=== PATIENT | female | born 1955 | race Caucasian/White ===

== ENCOUNTER 2018-04-08 13:44 | Observation (INO) ==
[2018-04-08] MEDS ORDERED: Heparin 1,000 UNITS/500 mL 500 ML ONE (13:47)
[2018-04-08] MEDS ORDERED: ISOVUE-370 200 ML INFUS..BTL IV ONE (13:47)
[2018-04-08] MEDS ORDERED: *HR* Heparin 10,000 UNIT/10 ML VIAL ONE (13:47)
[2018-04-08] MEDS ORDERED: 0.9 % Sodium Chloride 1,000 ML ONE ×2 (13:47→14:29)
[2018-04-08] MEDS ORDERED: *HR* Midazolam HCl 2 MG/2 ML VIAL ONE (14:31)
[2018-04-08] MEDS ORDERED: Nitroglycerin 1,000 MCG/10 ML VIAL IV ONE (14:32)
[2018-04-08] MEDS ORDERED: *HR* Atropine Sulfate 1 MG/10 ML SYRINGE ONE (14:33)
[2018-04-08] MEDS ORDERED: Nitroglycerin 0.4 MG TAB.SUBL SL PRN (15:31)
--- NOTE | 2018-04-08 16:40 | Invasive Diagnostic Lab Proc ---
Name: Sindy Arroyo Date of Study: 04/08/2018 Date: 1955 Ht: 66.9in Medical Record#: [id number] Age: 62 Wt: 149.91lb Gender: Female BSA: 1.79 Order #: [id number] BMI: 23.53 Physicians Procedure Physician: Hakeem Finch DO Referring MD: Referring MD: Staff Name Position [facility] 02:27 PM John Sandoval RT (R) Scrub 02:27 PM Emelyn Szymanski RN Capsule Filling Machine Operator 02:28 PM Jaimee Rowe RN Capsule Filling Machine Operator 02:28 PM Gutierrez Hooks RN Nurse 02:28 PM Renate Love RN Nurse 02:33 PM Payton Cobian RT (R) 02:36 PM Indications Indication STEMI Procedures Performed Procedure L HRT ARTERY/VENTRICLE ANGIO Pre-Procedure Checklist Informed consent is complete signed and on chart. H&P is on chart. ID band is on and ID verified with patient. Patient NPO for procedure The procedure was described for the patient and questions were answered. ECG is on chart. Rhythm: NSR Plan of Care Patient will tolerate the procedure without complications. Adequate level of comfort will be maintained. Hemodynamics will remain stable Patient will recover from procedure without complications. Respiratory function will be maintained. Cardiac rhythm will remain stable. Patient temperature will be maintained. Patient and/or family have verbalized understanding of the procedure. Patient Education Chief Complaint/Reason for Test: Cardiac Cath Developmental Category: Adult (18-64 years) Developmentally Appropriate for Age: Yes Learning Barriers: None Education Needs: Procedure Education Method: Verbal Information Taught: Cardiac Cath Educational Evaluation: Able to repeat information Intravenous Access Time IV Size Location DC'd Fluid/Drip Rate Units RN 18g 1 11/20" Peripheral-Lock On Arrival Rt Antecubital 0.9NaCl 50 ml/hr Jaimee Rowe RN 18g 1 11/20" Patent On Arrival Lt Arm 0.9NaCl 25 ml/hr Jaimee Rowe RN Allergies No Known Allergies Vital Signs Time BP (mmHg) HR (bpm) O2 Sat. RR (bpm) LOC 02:28 PM / % 5 = Fully awake and oriented or at pre-proc level 02:31 PM / % 5 = Fully awake and oriented or at pre-proc level 02:31 PM / % 5 = Fully awake and oriented or at pre-proc level 02:33 PM 159 / 79 78 100 % 02:38 PM 145 / 81 68 100 % 02:43 PM 147 / 87 66 100 % 03:00 PM 146 / 75 69 98 % 18 5 = Fully awake and oriented or at pre-proc level 03:15 PM 138 / 77 67 100 % 18 5 = Fully awake and oriented or at pre-proc level 03:30 PM 143 / 74 74 98 % 18 5 = Fully awake and oriented or at pre-proc level 03:45 PM 138 / 87 70 98 % 18 5 = Fully awake and oriented or at pre-proc level 04:00 PM 139 / 86 69 99 % 18 5 = Fully awake and oriented or at pre-proc level 04:15 PM 147 / 94 63 99 % 18 5 = Fully awake and oriented or at pre-proc level Procedural Medications Time Medication Dose Units Method Given By 02:27 PM 0.9NaCl 50 ml/hr Intravenous 02:27 PM Oxygen 2 L/min nasal cannula Emelyn Szymanski RN 02:34 PM Versed 2 mg Intravenous Emelyn Szymanski RN 02:36 PM Lidocaine 2% 10 ml Subcutaneous Hakeem Finch DO ASA Classification: Emergent Procedure: ASA score is assumed Soraya Score Preprocedure Postprocedure Activity 2- Moves 4 extremities sustained head lift Activity 2- Moves 4 extremities sustained head lift Circulation 2- SBP +/= 20 points of pre-anesthetic level Circulation 2- SBP +/= 20 points of pre-anesthetic level Consciousness 2- Awake and alert oriented x 3 Consciousness 2- Awake and alert oriented x 3 O2 Saturation 2- Able to maintain O2 satruation of 92% on room air O2 Saturation 2- Able to maintain O2 satruation of 92% on room air Respiratory 2- Able to deep breathe and cough well Respiratory 2- Able to deep breathe and cough well Total Score 10 Total Score 10 Contrast Agent: Isovue Diagnostic Contrast: 60 ml Total Contrast: 60 ml Fluoro Dose: 170 mGy Activated Clotting Time Time Seconds to Clot 02:42 PM 219 03:40 PM 149 Procedure Log Time Note Enter By 02:27 PM Pt arrived to chemistry laboratory technician 2 at 14:27 tsites 02:27 PM Patient arrived at 14:27 with 0.9NaCl Intravenous drip @ 50 ml/hr tsites 02:27 PM Lala Melchor RN Position: Monitor Time in: 14:27 tsites 02: PM John Sandoval RT (R) Position: Scrub Time in: : tsites 02: PM Patient charges- Angio tray pack, Navilyst 3mm J, Pulse Oximetry and ACIST tubing and transducer tsites : PM Hair removed from procedure site in procedure lab using clippers. Bilateral groin prepped with Chloraprep by Jaimee Rowe RN, then patient was draped. Skin intact. tsites : PM Physician arrived 14: tsites : PM Meet and greet completed tsites : PM Sign in performed according to hospital policy. tsites : PM Procedure start : tsites : PM Time: : Oxygen on at 2 L/min per nasal cannula by Emelyn Szymanski RN ites : PM Emelyn Szymanski RN Position: Capsule Filling Machine Operator Time in: : tsites 02: PM Jaimee Rowe RN Position: Capsule Filling Machine Operator Time in: : tsites : PM Gutierrez Hooks RN Position: Nurse Time in: ts PM Time: 14: Patient comfortable and pain free: Yes tsites : PM Time: 14:LOC: 5 = Fully awake and oriented or at pre-proc level tsites 02: PM CathStat 02: PM Clinical Presentation: STEMI or equivalent tsites 02:31 PM Vitals capture started with the following parameters, Patient=Adult, Interval=5 min, Initial Pvhkpoue=254 mmHg, Deflation Rate=5 mmHg, Cuff placed on Right Arm 02: PM D-fib pads applied ts: PM Time: 14:31 Patient comfortable and pain free: Yes tsoummers 02: PM Time: 14:31LOC: 5 = Fully awake and oriented or at pre-proc level tsoummers 02:32 PM Vitals capture started with the following parameters, Patient=Adult, Interval=5 min, Initial Foxpssle=198 mmHg, Deflation Rate=5 mmHg, Cuff placed on Right Arm 02:33 PM HR=78 bpm, VWNV=317/79 mmhg, FlY4=127.0 %, Comment=NSR 02:33 PM Renate Love RN Position: Nurse Time in: [facility] 02:34 PM Recorded ECG: HR=68 Condition=Condition 1 02:34 PM Time: 14:34 Versed 2 mg Intravenous Given by Emelyn Szymanski RN oumm 02:35 PM Pressure channel 2 zeroed. 02:35 PM Time out performed according to hospital policy mm 02:36 PM Aranza Payton RT (R) Position: Time in: 14:36 tsoumm 02:36 PM Time: 14:36 10 ml Lidocaine 2% to right groin Subcutaneous Given by Hakeem Finch DO mm 02:38 PM Micro-Introducer Kit utilized for sheath placement mm 02:38 PM Access obtained by percutaneous puncture. 6Fr 10cm Terumo [place] sheath placed in right Femoral artery. [id number] oumm 02:38 PM HR=68 bpm, KYPR=721/81 mmhg, LpO9=058.0 %, Comment=NSR 02:38 PM 0.035 145cm Navilyst 3mmJ wire [id number] oumm 02:40 PM 6Fr FL 4 catheter inserted over the wire [facility] mm 02:40 PM wire removed mm 02:40 PM LCA angiography performed in multiple views. tsoumm 02:40 PM Recorded Pressure: Ao, HR=63, Condition=Condition 1 (Aorta) Ao 138/48/86 02:41 PM Inflation device was opened. tsoumm 02:41 PM Catheter removed mm 02:42 PM 6Fr JR 4 [place] Bright-Tip guide catheter was used to cannulate the PCI vessel successfully. reused? No oummers 02:42 PM At 14:42 the ACT was 219 seconds. tsmm 02:42 PM Catheter selectively placed in left ventricle tsoummers 02:42 PM Recorded Pressure: LV, HR=72, Condition=Condition 1 (Left Ventricle) LV 153/0/9 02:42 PM Bolus angiogram of left Ventricle complete: hand injection oumm 02:43 PM Recorded Pressure: LV, Ao, HR=73, Condition=Condition 1 (Left Ventricle) LV 148/0/10, (Aorta) Ao 150/69/105 02:43 PM RCA angiography performed in multiple views. tsoumm 02:43 PM HR=66 bpm, OFCC=483/87 mmhg, JfB0=674.0 %, Comment=NSR 02:43 PM Recorded Pressure: Ao, HR=70, Condition=Condition 1 (Aorta) Ao 126/20/61 02:44 PM Bolus angiogram of right Femoral complete: hand injection tsoumm 02:44 PM Guide catheter removed intact. tsoumm 02:45 PM Procedure completed at 14:45 tsoummers 02:46 PM Did you address JOSE flow and Dominance? Yes tsoummers 02:46 PM Time: 14:31LOC: 5 = Fully awake and oriented or at pre-proc level tsoumm 02:46 PM Time: 14:31 Patient comfortable and pain free: No tsoummers 02:47 PM Sign out completed: Radiation Dose 170.42 mGy Fluoro Time: 1.3 Isovue 370 - 200ml contrast 60 ml given by Hakeem Finch DO. Complications: NoneCardiac Rehab Consult needed: NoConfirmed administered medications: Yes tsoummers 02:47 PM Isovue 370 - 200ml,1 Bottle(s) used. tsoumm 02:47 PM Sheath left in place to be pulled on floor/holding area tsoummers 02:47 PM Estimated Blood Loss: minimal tsoummers 02:47 PM Post ECG NSR tsoummers 02:47 PM Post Blood Pressure 147/87 tsoummers 02:47 PM Information taught Cardiac Cath tsoummers 02:47 PM Education needs Procedure, Plan of Care, and Responsibilities of Patient in Care tsoummers 02:47 PM Learning barriers :None tsoummers 02:47 PM Education Methods Verbal tsoummers 02:47 PM Education evaluation Able to repeat information tsoumm 02:47 PM Site status No bleeding/hematoma - Rt Groin as reported by John Sandoval RT (R) at 14:47 tsoummers 02:47 PM Opsite applied tsoummers 02:48 PM 90mg brilinta given [employer] per Sukhi ED nurse tsoummers 02:48 PM Delay to floor Bed availability tsoummers 02:48 PM No family present at this time. Pt refuses to allow family to be contacted. tsoummers 02:48 PM Vitals capture stopped. 02:48 PM Complications: None tsoummers 02:48 PM Fluoro Time: 1.3 tsoummers 02:48 PM Isovue 370 - 200ml contrast [address] Finch. tsoummers 02:49 PM Radiation Dose 170.42 mGy tsoummers 02:50 PM Lesion found in Proximal LAD. Pre Stenosis: 50 Pre JOSE Flow: tsoummers 02:50 PM Lesion found in Mid LAD. Pre Stenosis: 40 Pre JOSE Flow: tsoummers 02:50 PM Proximal Left Anterior Descending Coronary Artery with 50% stenosis. If graft is supplying this territory, 0 % stenosis. tsoummers 02:50 PM Mid/Distal Left Anterior Descending Coronary Artery and diagonal branches with 40% stenosis. If graft is supplying this area, 0 % stenosis tsoummers 02:51 PM Coronary Dominance: right tsoummers 02:52 PM Bed management contacted. No 2N beds available at this time. Pt will be placed in the holding room until able to pull sheath. [facility] PM Per Sonya with bed menagement, pt will be taken to [facility] following sheath pull. tsoummers 02:54 PM Patient out of room: 14:54 tsoummers 03:[address] Finch in to see patient and speak with her and family regarding test results. kwitte 03:57 PM Right femoral artery sheath pulled per this RN. Manual pressure being held with Vpad at present. kwitte 04:15 PM Hemostasis obtained to right femoral artery. Dressing applied with opsite. Patient educated on post sheath pull instructions. Patient verbalized understanding. kwitte 04:31 PM report called to 3b nurse. [facility] at this time scoates 04:33 PM Patient out of room: 16:33 scoates Complications Complication None Hemodynamics Pressures Site Systolic/A Wave Diastolic/V Wave Mean AO 138 48 86 LV 153 0 9 LV 148 0 10 AO 150 69 105 AO 126 20 61 Post Procedure Information Blood Pressure: 147/87 mmHg Rhythm: NSR Post procedural instructions were given Site Checks Time Location Status Staff Sheath In? Note 02:47 PM Rt Groin No bleeding/hematoma John Sandoval RT (R) 03:00 PM Rt Groin No bleeding/ No Hematoma Aureliano Espinoza RN Yes 03:15 PM Rt Groin No bleeding/ No Hematoma Aureliano Espinoza RN Yes 03:30 PM Rt Groin No bleeding/ No Hematoma Aureliano Espinoza RN Yes 03:45 PM Rt Groin No bleeding/ No Hematoma Aureliano Espinoza RN Yes 04:00 PM Rt Groin No bleeding/ No Hematoma Aureliano Espinoza RN 04:15 PM Rt Groin No bleeding/ No Hematoma Aureliano Espinoza RN Pulses Time Site Pre-Procedure Post-Procedure Note 04/08/2018 3:00:00 PM Bilateral DP & PT 2+ 04/08/2018 3:15:00 PM Bilateral DP & PT 2+ Updated by Renate Mckeon RN on 04/08/2018 4:33:23 PM electronically signed on 04/08/2018 4:34:05 PM with status of Final
[2018-04-08] MEDS: Diltiazem CD (24hr) 120 MG CAPSULE PO SCH (18:52)
[2018-04-09 05:13] LABS: Basophils % 0.3 %; Eosinophils # 0.1 K/mcL (0.0-0.6); Eosinophils % 1.2 %; Hematocrit 42.1 % (35.3-44.9); Hemoglobin 14.7 g/dL (11.5-15.4); Immature Granulocytes % 0.3 % (0-4); Lymphocytes % 33.1 %; Mean Corpuscular HGB Conc 34.9 g/dL (31.6-35.5); Mean Corpuscular Hemoglobin 32.3 pg (28.0-33.3); Mean Corpuscular Volume 92.5 fL (83.0-100.0); Mean Platelet Volume 10.8 fL (9.4-12.4); Monocytes # 0.7 K/mcL (0.0-1.3); Monocytes % 7.9 %; Neutrophils # 5.2 K/mcL (1.6-8.9); Platelet Count 193 K/mcL (140-400); Red Blood Count 4.55 M/mcL (3.82-4.97); Red Cell Distribution Width 11.9 % (11.5-14.5); Segmented Neutrophils % 57.2 %
[2018-04-09] MEDS: Aspirin 81 MG TAB.CHEW PO SCH (09:06)
[2018-04-09] MEDS: Diltiazem CD (24hr) 120 MG CAPSULE PO SCH (09:06)
--- NOTE | 2018-04-09 11:54 | Cardiology Progress Note ---
Date of Encounter: 04/09/18 Time of Encounter: 11:50 Assessment and Plan (1) Prinzmetal angina Current Visit: Yes Status: Acute Presents with Chest pain with exercise and found to have ST elevation in the inferior leads. Troponin 4.57. Taken emergently to cardiac catheterization lab. No intervention. There was non- obstructive CAD. Repeat EKG showed resolution of ST elevation. Prinzmetal angina suspected. Cardizem and imdur started. Continue plavix for at least one month for IN. Denies recurrent pain this morning. Recommend ambulating in hallway today. TTE pending. (2) CAD (coronary artery disease) Current Visit: Yes Status: Acute LHC showed 50% stenosis in the pLAD and 40% stenosis mLAD. Recommend asa, statin , and bb. Continue healthy heart diet and exercise. Qualifiers: Coronary Disease-Associated Artery/Lesion type: [place] artery [place] vs. transplanted heart: [place] heart Associated angina: without angina Qualified Code(s): I25.10 - Atherosclerotic heart disease of [place] coronary artery without angina pectoris (3) NSVT (nonsustained ventricular tachycardia) Current Visit: Yes Status: Acute 20 beat NSVT seen this morning at 0748 am. Likely from re-profusion. Coreg and cardizem added, avg HR 58 bpm. Will continue to monitor on telemetry. EF 55% on LV gram. TTE pending. Discussion w patient/family: The assessment and plan as outlined above was discussed with the patient and/or family members who expressed understanding and agreement. All questions were answered. Thank you for involving us in the care of your patient. Please call with any questions. Subjective Principal diagnosis: prinzmetal angina Interval history: No recurrent chest pain overnight. Objective Vital Signs, Last 4 Hours Temp Pulse Resp BP Pulse Ox 04/09/18 11:24 97.8 F 64 16 121/74 97 General: Conversant, No Apparent Distress HEENT: Atraumatic, Normocephaly, Mucus Membranes Moist Neck: No JVD, Normal carotid pulses Cardiac: Reg Rate and Rhythm, Normal S1 and S2, No Murmur Lungs: Normal Breath Sounds, No Wheeze, Rales, Rhonchi Neuro: Alert and responsive, No focal deficits noted Abdomen: Soft, Non-Tender Skin: No rashes noted on visualized skin Musculoskeletal: No Chest Wall Tenderness Extremities: No Clubbing, No Cyanosis, No Edema, Normal Pulses, Other (Right groin dressing removed. No hematoma. Ne redness or edema. ) Results 04/09/18 04:32 Lab Results 04/09/18 04/09/18 04:32 04:32 WBC 9.1 Hgb 14.7 Hct 42.1 Plt Count 193 Troponin I 4.57 H* - Imaging and Cardiology Echo: pending Cardiac cath: report reviewed - EKG Interpretation EKG results cardiology: personally reviewed - VTE Reasons for not Prescribing Prophylaxis: Not indicated-Anticoagulated or INR therapeutic Consult Discharge Plan - Plan Referrals: NONE,PCP [Primary Care Provider] - Hoda Mckeon DO [Family Provider] -
[2018-04-10] MEDS: Diltiazem CD (24hr) 120 MG CAPSULE PO SCH (09:42)
[2018-04-10] MEDS: Aspirin 81 MG TAB.CHEW PO SCH (09:42)
--- NOTE | 2018-04-10 10:00 | Discharge Summary ---
Orders not resulted at time of discharge: Pending orders 04/08/18 15:38 ECG 12 lead ECG [ECG] Routine ECG 12 lead ECG [ECG] Stat 04/08/18 18:14 EKG [ECG 12 lead ECG] [ECG] Stat 04/09/18 07:00 ECG 12 lead ECG [ECG] Routine 04/09/18 10:51 EKG [ECG 12 lead ECG] [ECG] Routine 04/10/18 09:55 Basic Metabolic Panel Stat Magnesium Stat Date of Encounter: 04/10/18 Time of Encounter: 09:56 - Discharge Diagnosis (1) Prinzmetal angina Priority: Primary Status: Acute (2) CAD (coronary artery disease) Priority: Primary Status: Acute Qualifiers: Coronary Disease-Associated Artery/Lesion type: [place] artery [place] vs. transplanted heart: [place] heart Associated angina: without angina Qualified Code(s): I25.10 - Atherosclerotic heart disease of [place] coronary artery without angina pectoris (3) NSVT (nonsustained ventricular tachycardia) Priority: Primary Status: Acute - Hospital Course Hospital course: Ms. Arroyo is a 62 year old female with PMH of HLD who presented with chest pain. Chest pain started while she was exercising. She was found to have ST elevation in the inferior leads on her EKG and was taken to the cardiac catheterization lab emergently. LHC revealed 50% stenosis in the pLAD and 40% stenosis in the mLAD. No intervention needed. Her chest pain lasted a few hours and resolved after the addition of a CCB. ST elevation also resolved. She is diagnosed with prinzmetal angina. There was no complication from her procedure. Denies recurrent chest pain with ambulating in the hallway. The morning after her procedure she developed 20 beat run NSVT. She was asymptomatic. CCB and BB was added. NTG SL given and use, indication, adverse effects reviewed. Recommended to continue DAPT with asa and plavix for one month post IL. No recurrent NSVT seen in last 24 hours. TTE shows preserved EF and no significant valvular disease. She is now ready for discharge home. Plan of care reviewed with Dr. Parker. - Time Spent with Patient Total time spent providing and/or coordinating discharge services: - Discharge Medications Prescriptions: Nitroglycerin 0.4 mg SL Q5MIN PRN #25 tab.subl PRN Reason: Chest Pain Aspirin 81 mg PO DAILY #30 tab.chew Carvedilol [Coreg] 3.125 mg PO BIDWM #60 tablet Clopidogrel [Plavix] 75 mg PO DAILY #30 tablet Diltiazem CD (24hr) [Cardizem CD] 120 mg PO DAILY #30 cap.er.24h Rosuvastatin [Crestor] 20 mg PO HS #30 tablet Home Medications: Aspirin 81 mg PO DAILY #30 tab.chew 04/10/18 [Rx] Carvedilol [Coreg] 3.125 mg PO BIDWM #60 tablet 04/10/18 [Rx] Clopidogrel [Plavix] 75 mg PO DAILY #30 tablet 04/10/18 [Rx] Diltiazem CD (24hr) [Cardizem CD] 120 mg PO DAILY #30 cap.er.24h 04/10/18 [Rx] Nitroglycerin 0.4 mg SL Q5MIN PRN #25 tab.subl 04/10/18 [Rx] Rosuvastatin [Crestor] 20 mg PO HS #30 tablet 04/10/18 [Rx] Allergies/Adverse Reactions: 3 Allergy/AdvReac Type Severity Reaction Status Date / Time No Known Allergies Allergy Verified 04/08/18 13:29 Date of admission: 04/08/18 16:35 Primary care physician: PCP NONE Consults: 04/08/18 15:31 Consult to Nurse Navigator [CONS] Routine Comment: 04/08/18 15:38 Consult to Cardiac Rehabilitation-Phase1 [CONS] Routine Comment: Reason for Consult: AMI Call Completed: Yes Consult to Nurse Navigator [CONS] Routine Comment: Discharging clinician: Oumar Kumar Anticipated date of discharge: 04/10/18 Physical Examination Vital Signs, Last 4 Hours Temp Pulse Resp BP Pulse Ox 04/10/18 07:49 97.9 F 67 16 107/67 95 General: Conversant, No Apparent Distress HEENT: Atraumatic, Normocephaly, Mucus Membranes Moist Neck: No JVD, Normal carotid pulses Cardiac: Reg Rate and Rhythm, Normal S1 and S2, No Murmur Lungs: Normal Breath Sounds, No Wheeze, Rales, Rhonchi Neuro: Alert and responsive, No focal deficits noted Abdomen: Soft, Non-Tender Skin: No rashes noted on visualized skin Musculoskeletal: No Chest Wall Tenderness Extremities: No Clubbing, No Cyanosis, No Edema, Normal Pulses - Patient Status Disposition: Home, Self-Care Condition: Good Functional capacity at discharge: independent ambulation Overall status at discharge: patient is progressing back to baseline - Discharge Instructions Follow Up With: Hoda Mckeon DO [Family Provider] - NONE,PCP [Primary Care Provider] - - Diet and Activity Activity: increase activity as tolerated Diet: low fat, low cholesterol - VTE Reasons for not Prescribing Prophylaxis: Not indicated-Anticoagulated or INR therapeutic
[2018-04-10 11:24] VITALS: BP 114/68
[2018-04-10 11:38] LABS: BUN/Creatinine Ratio 20 (6-26); Blood Urea Nitrogen 16 mg/dL (8-23); Calcium 9.3 mg/dL (8.6-10.3); Carbon Dioxide 29 mEq/L (23-29); Chloride 106 mEq/L (98-107); Glucose 127 mg/dL (70-105); Magnesium 2.1 mg/dL (1.6-2.6); Osmolality,Calculated 293 (280-300); Sodium 140 mEq/L (136-145); eGFR For African Americans > 60 (> 60); eGFR For Non-African Americans > 60 (> 60)
--- NOTE | 2018-04-11 08:01 | Electrocardiograph Report ---
[address] [address] Test Date: 2018-04-09 Pat Name: Sindy Arroyo Department: 113 Room: 3B Gender: F Installations Inspector: SHANTE : 1955 Requested By: Hakeem Finch Order Number: [id number] Reading MD: Fernando Keenan Measurements Intervals [place] Rate: 51 P: 59 DE: 148 QRS: 46 QRSD: 93 T: 32 QT: 419 QTc: 397 Interpretive Statements SINUS BRADYCARDIA Electronically Signed On 04-11-2018 8:00:17 EDT by Fernando Keenan
== END 2018-04-10 15:47 | disposition home or self-care (01) ==
LOC: 3BNU 16:35 → INTOOBSV 16:35
PROVIDERS: ADMIT Internal Medicine Cardiovascular Disease; ATTEND Internal Medicine Cardiovascular Disease